=== PATIENT | female | born 1970 | race African-American/Black ===

== ENCOUNTER 2025-05-21 03:36 | Emergency (ER) | payer OTHER ==
[~2025-05-21] VITALS: Ht 162.6 cm; Wt 63.7 kg
--- NOTE | 2025-05-21 04:12 | ED.PDOC ---
Back pain HPI HPI Comments 52 year old female presents to ER with complaints of back pain x 4 hours. Patient reports she started experiencing unproved lower back "spasms" 4 hours prior to arrival to ER. Denies any trauma/falls/heavy lifting and rates current pain a 8/10 to lower lumbar spine with radiation down posterior bilateral legs. Denies use of medications for current symptoms and presents to ER ambulatory, with steady gait, in no distress. Denies fever, body aches, chills, numbness/tingling, abdominal/pelvic pain, changes in urination/bm or any further symptoms/complaints Chief Complaint: Back Pain Time Seen by MD: 03:50 Primary Care Provider: UNKNOWN Reviewed Notes: Nurses Notes, Medications, Allergies Allergies: Coded Allergies: NO KNOWN ALLERGIES (Unverified , 05/21/25) Home Meds Active Scripts Cyclobenzaprine Hcl (Cyclobenzaprine Hcl) 5 Mg Tab, 1 TAB PO QHSP, #14 TAB 0 Refills Prov:JANINE FALCON 05/21/25 Ibuprofen (Ibuprofen) 800 Mg Tab, 1 TAB PO TID PRN, #30 TAB 0 Refills Prov:JANINE FALCON 05/21/25 Information Source: Patient Mode of Arrival: Ambulatory Past Medical History PAST MEDICAL HISTORY: Arthritis Past Medical History (Other): Scoliosis Surgical History: Denies all surgeries SENIOR SCRUM MASTER History: No Pertinent SENIOR SCRUM MASTER History Family History Family History: Unknown Social History Smoker: Non-Smoker Alcohol: Denies ETOH Use Drugs: Denies Drug Use Lives In: Home Constitutional: denies: chills, diaphoresis, fatigue, fever, malaise, sweats, weakness, others EENTM: denies: blurred vision, double vision, ear bleeding, ear discharge, ear drainage, ear pain, ear ringing, eye pain, eye redness, hearing loss, mouth pain, mouth swelling, nasal discharge, nose bleeding, nose congestion, nose pain, photophobia, tearing, throat pain, throat swelling, voice changes, others Respiratory: denies: cough, hemoptysis, orthopnea, SOB at rest, shortness of breath, SOB with excertion, stridor, wheezing, others Cardiovascular: denies: chest pain, dizzy spells, diaphoresis, Dyspnea on exertion, edema, irregular heart beat, left arm pain, lightheadedness, palpitations, PND, syncope, others Gastrointestinal: denies: abdomen distended, abdominal pain, blood streaked bowels, constipated, diarrhea, dysphagia, difficulty swallowing, hematemesis, melena, nausea, poor appetite, poor fluid intake, rectal bleeding, rectal pain, vomiting, others Genitourinary: denies: abnormal vagina bleeding, burning, dyspareunia, dysuria, flank pain, frequency, hematuria, incontinence, pain, , vagina discharge, urgency, others Neurological: denies: dizziness, fainting, headache, left sided numbness, left sided weakness, numbness, paresthesia, pre-existing deficit, right sided numbn ess, right sided weakness, seizure, speech problems, tingling, tremors, weakness, others Musculoskeletal: reports: others (As stated in HPI) Integumetry: denies: bruises, change in color, change in hair/nails, dryness, laceration, lesions, lumps, rash, wounds, others Allergic/Immunocompromised: denies: Difficulty Healing, Frequent Infections, Hives, Itching, others Hematologic/Lymphatic: denies: anemia, blood clots, easy bleeding, easy bruising, swollen glands, others Endocrine: denies: excessive hunger, excessive sweating, excessive thirst, excessive urination, flushing, intolerance to cold, intolerance to heat, unexplained weight gain, unexplained weight loss, others Psychiatric: denies: anxiety, bipolar disorder, depression, hopeless, panic disorder, schizophrenia, sleepless, suicidal, others Physical Exam General Appearance: No Apparent Distress HEENT: PERRL/EOMI Neck: Full Range of Motion, Non-Tender, Normal Respiratory: Chest Non-Tender, Lungs Clear, No Accessory Muscle Use, No Respiratory Distress, Normal Breath Sounds Cardiovascular: No Murmur, No Gallop, Regular Rate/Rhythm Breast Exam: Deferred Gastrointestinal: Non Tender, No Pulsatile Mass, Soft Genitalia: Deferred Pelvic: Deferred Rectal: Deferred Extremities: Normal capillary refill, Normal range of motion Musculoskeletal : Extremity Location: Back (TTP to bilateral lower lumbar paraspinals noted. No skin changes noted) Neurologic: Alert, No Motor Deficits, Normal Affect, Normal Mood, No Sensory Deficits Cerebellar Function: Normal Reflexes: Normal Skin: Dry, Normal Color, Warm Lymphatic: No Adenopathy Was a procedure done? Was a procedure done?: No Sedation Sedation?: No Back Pain Differential Dx Differential Diagnosis: AAA, Fracture, Urolithiasis, Other (Neurovascular injury) X-Ray, Labs, Meds, VS Vital Signs Date Time Temp Pulse Resp B/P (MAP) Pulse Ox O2 Delivery O2 Flow Rate FiO2 05/21/25 03:45 98.2 77 18 150/96 (114) 98 98.2 Lab Test 05/21/25 03:36 Range/Units Urine Color Light-yellow Yellow Urine Clarity Clear Clear Urine pH 5.5 5.0-9.0 Urine Specific [place] 1.013 1.001-1.035 Urine Protein Negative Negative Urine Ketones Negative Negative Urine Blood Negative Negative /uL Urine Nitrite Negative Negative Urine Bilirubin Negative Negative Urine Urobilinogen Normal Negative mg/dL Urine Leukocyte Esterase 3+ Negative /uL Urine RBC 7 0 - 4 /hpf Urine Microscopic WBC 13 H 0-5 /HPF Urine Squamous Epithelial Cells Few <5 /hpf Urine Bacteria None seen None Seen /hpf Urine Glucose Normal Normal mg/dL PATIENT: MASON WALKERACCT: [id number]: [id number] : 12/30/1972 LOC: ER ROOM / BED: / AGE / SEX: 52 / F ADM STATUS: REG ER SERVICE 9 ORDERING PHYSICIAN: JANINE FALCON PROCEDURE(s): LUMB2 - LUMBAR SPINE 3 VIEW REASON: lumbar back pain ORDER NUMBER(s): [id number], ACCESSION NUMBER(s): [id number] INDICATION: lumbar back pain TECHNIQUE: 4 views of the lumbar spine were obtained. COMPARISON: None FINDINGS: There are no acute fractures or subluxations. Moderate colonic stool. IMPRESSION: No acute fracture or subluxation. ATED BY: NICOLE MAURO MD DICTATED DATE/TIME: 05/21/25455 SIGNED BY: NICOLE MAURO MD SIGNED DATE/TIME: 05/21/25455 CC: Urinalysis reviewed-urine leukocyte esterase 3+, urine blood negative, urine nitrites negative Lumbar spine x-ray reviewed Advised on rest/no strenuous activity Advised to follow up with PCP in 1-2 days Patient verbalized understanding and agreeable with current plan of care Advised to return to ER immediately if symptoms worsen Images Reviewed?: Images reviewed and evaluated by me Time of 1ST Reevaluation: 03:50 Reevaluation 1ST: N/A Patient Education/Counseling: Diagnosis, Treatment, Prognosis, Need For Follow Up Family Education/Counseling: No Family Present SEPSIS Sepsis Screen Date sepsis recognized/suspect: May 21, 2025 Time Sepsis recognized/suspect: 344 Recent Procedure: No On Antibiotic Therapy: No Respiratory Rate >20: No Heart Rate >90: No Temp<36 C (96.8 F) or >38.3 C: No SBP <90 or MAP <65 mmHG: No New Acute Mental Status Change: No Is the patient on CPAP, BIPAP,: No Physician Orders Lumbar Spine 3 View (05/21/25 04:00) Vital Signs Date Time Temp Pulse Resp B/P (MAP) Pulse Ox O2 Delivery O2 Flow Rate FiO2 05/21/25 03:45 98.2 77 18 150/96 (114) 98 98.2 Departure 1 Departure Time of Disposition: 05:02 Impression: Primary Impression: Lumbar strain Qualified Codes: S39.012A - Strain of muscle, fascia and tendon of lower back, initial encounter Additional Impression: UTI (urinary tract infection) Qualified Codes: N30.00 - Acute cystitis without hematuria Disposition: 01 HOME / SELF CARE / HOMELESS Condition: Stable e-Prescriptions Sulfamethoxazole W/Trimethopri (Bactrim Ds Tablet) 1 Tab Tb 1 TAB PO BID for 7 Days, #14 TAB 0 Refills Prov: JANINE FALCON 05/21/25 Cyclobenzaprine Hcl (Cyclobenzaprine Hcl) 5 Mg Tab 1 TAB PO QHSP, #14 TAB 0 Refills Prov: JANINE FALCON 05/21/25 Ibuprofen (Ibuprofen) 800 Mg Tab 1 TAB PO TID PRN, #30 TAB 0 Refills Prov: JANINE FALCON 05/21/25 Discharged With: Self Critical Care Note Critical Care Time?: No Stability Stability form required: No Heart Score Heart Score: Heart Score Response (Comments) Value History N/A 0 EKG N/A 0 Age N/A 0 Risk Factors N/A 0 Troponin N/A 0 Total 0 JANINE FALCON May 21, 2025 04:12
[2025-05-21] MEDS ORDERED: CYCL-837 PO (04:31)
[2025-05-21] MEDS ORDERED: IBUP-1456 PO (04:31)
--- NOTE | 2025-05-21 04:58 | DVH ---
INDICATION: lumbar back pain TECHNIQUE: 4 views of the lumbar spine were obtained. COMPARISON: None FINDINGS: There are no acute fractures or subluxations. Moderate colonic stool. IMPRESSION: No acute fracture or subluxation.
[2025-05-21 05:04] LABS: Urine Protein, UAD Negative (Negative)
[2025-05-21] MEDS ORDERED: BACDST PO (05:07)
[2025-05-21 05:19] VITALS: BP 150/96; PULSE 77; RESP 18; TEMP 98.2; O2SAT 98
== END 2025-05-21 05:21 | disposition home or self-care (01) ==
LOC: EDBD 03:36 → ER 03:36
DX: S39.012A Strain of muscle, fascia and tendon of lower back, initial encounter (principal); N39.0 Urinary tract infection, site not specified; M19.90 Unspecified osteoarthritis, unspecified site; Z79.899 Other long term (current) drug therapy; X58.XXXA Exposure to other specified factors, initial encounter; Y93.89 Activity, other specified; Y92.89 Other specified places as the place of occurrence of the external cause; Y99.8 Other external cause status
CPT/HCPCS: 72100; 81001